=== PATIENT | male | born 1955 | race Hispanic/Latino ===

== ENCOUNTER 2021-07-28 13:06 | Inpatient (IN) | payer MEDICARE ==
--- NOTE | 2021-07-28 14:16 | Emergency Department Report ---
- General Chief complaint: Recheck/Abnormal Lab/Rx Stated complaint: ABNORMAL LABS Time Seen by Provider: 07/28/21 13:30 Source: patient Mode of arrival: Stretcher Limitations: No Limitations - History of Present Illness Initial comments: Patient presents by ambulance secondary to generalized weakness and shortness of breath. He states that he is having ongoing generalized weakness and dyspnea. This is progressively worsened over the last week. His decided to take him to the hospital today to be seen because he was getting worse. He was physically unable to walk out to the car due to weakness. EMS was called. Patient had outpatient labs drawn yesterday. He was told today that his hemoglobin was 8 and that he needed to be seen. He has a recent history of bleeding ulcers. He was admitted twice at [place] for bleeding ulcers. He required transfusion both times. Severity scale (0 -10): 0 - Related Data Allergies Allergy/AdvReac Type Severity Reaction Status Date / Time warfarin [From Coumadin] Allergy Nausea Verified 07/28/21 13:21 ED Review of Systems ROS: Stated complaint: ABNORMAL LABS Other details as noted in HPI Comment: All other systems reviewed and negative Constitutional: denies: fever Eyes: denies: eye pain ENT: denies: throat pain Respiratory: denies: cough Cardiovascular: denies: chest pain Endocrine: denies: unexplained weight loss Gastrointestinal: denies: abdominal pain Genitourinary: denies: dysuria Skin: denies: rash Neurological: denies: headache Hematological/Lymphatic: denies: easy bruising ED Past Medical Hx - Past Medical History Previous Medical History?: Yes Hx Congestive Heart Failure: Yes Hx Diabetes: Yes ED Physical Exam - General Limitations: No Limitations ED Course Vital Signs 07/28/21 07/28/21 07/28/21 13:16 13:49 13:55 Temperature 98.2 F Pulse Rate 90 89 Respiratory 16 Rate Blood Pressure Blood Pressure 116/90 [Left] O2 Sat by Pulse 99 97 Oximetry 07/28/21 07/28/21 07/28/21 14:00 14:15 14:31 Temperature Pulse Rate 99 H 92 H 83 Respiratory 16 15 17 Rate Blood Pressure 131/56 131/56 140/53 Blood Pressure [Left] O2 Sat by Pulse 100 100 100 Oximetry 07/28/21 14:45 Temperature Pulse Rate 84 Respiratory 15 Rate Blood Pressure 140/53 Blood Pressure [Left] O2 Sat by Pulse 100 Oximetry - Reevaluation(s) Reevaluation #1: 07/28/21 16:58 Labs have been noted. Case has been discussed with the patient and resource uti lization. Will admit for transfusion. ED Medical Decision Making - Lab Data Result diagrams: 07/28/21 14:10 07/28/21 14:10 - Medical Decision Making Patient presents with symptomatic anemia in the form of shortness of breath and generalized weakness. He has been transfused before. We will proceed with ongoing transfusion at this time. Patient does not have evidence of STEMI. He clinically does not have chest pain. I do not believe this represents NSTEMI. Whether or not he will benefit from a single unit is unknown. The degree of his congestive heart failure is also unknown. I would hate to create pulmonary edema by giving him packed red cells. He will be admitted for observation status. Critical Care Time: No Critical care attestation.: If time is entered above; I have spent that time in minutes in the direct care of this critically ill patient, excluding procedure time. ED Disposition Clinical Impression: Symptomatic anemia Disposition: ADMITTED INPATIENT Is pt being admited?: Yes Condition: Stable
[2021-07-28 14:31] LABS: Hematocrit 23.8 % (35.5-45.6); Hemoglobin 7.5 gm/dl (11.8-15.2); Mean Corpuscular HGB Conc 32 % (32-34); Mean Corpuscular Volume 77 fl (84-94); Platelet Count 166 K/mm3 (140-440); Red Blood Count 3.07 M/mm3 (3.65-5.03); Red Cell Distribution Width 17.6 % (13.2-15.2)
[2021-07-28 14:52] LABS: BUN/Creatinine Ratio 20; Blood Urea Nitrogen 24 mg/dL (9-20); Calcium 8.7 mg/dL (8.4-10.2); Hemolysis Index 1
--- NOTE | 2021-07-28 17:00 | History and Physical Report ---
History of Present Illness Chief complaint: I feel weak History of present illness: 65 YO Male with Obesity Hypoventilation Syndrome, DM, CHF, Anemia Chronic Disease presents to ED for evaluation. Patient reports "I feel weak". Patient states that he has experienced progressive and generalized weakness over the past 1 week with progressively worsening symptoms over the same timeframe. Patient knowledges decreased exercise tolerance, dyspnea on exertion, dyspnea at rest, orthopnea, as well as paroxysmal nocturnal dyspnea. EMS was notified and upon arrival the patient was found to be in distress and subsequently transported to [facility] for further care and evaluation of the aforementioned symptoms. The patient was seen and evaluated in the emergency department. All lab and imaging studies reviewed. Patient found to have clinical symptoms consistent with diastolic CHF, as well as symptomatic anemia. Patient placed in observation status and admitted to telemetry. Patient initiated on CHF protocol. Patient transfused with packed red blood cells. Patient denies fever, chills, chest pain, palpitation, productive cough, skin rash, recent ill contacts, known exposure to COVID-19, unilateral leg swelling, calf pain, individual/family history of DVT/PE/bleeding/blood clotting disorders. Past History Past Medical History: heart failure, hypertension, other (See HPI) Past Surgical History: Other (Endoscopy) Social history: , lives with family. denies: smoking, alcohol abuse, prescription drug abuse Family history: diabetes, hypertension Medications and Allergies Allergies Allergy/AdvReac Type Severity Reaction Status Date / Time warfarin [From Coumadin] Allergy Nausea Verified 07/28/21 13:21 Review of Systems Constitutional: weakness Exam - Constitutional Vitals: Temp Pulse Resp BP Pulse Ox 98.2 F 84 15 140/53 100 07/28/21 13:16 07/28/21 14:45 07/28/21 14:45 07/28/21 14:45 07/28/21 14:45 General appearance: Present: mild distress - EENT Eyes: Present: PERRL ENT: hearing intact, clear oral mucosa, other (Conjunctival pallor) - Neck Neck: Present: supple, normal ROM - Respiratory Respiratory effort: normal Respiratory: bilateral: CTA - Cardiovascular Heart Sounds: Present: S1 & S2. Absent: rub, click - Extremities Extremities: pulses symmetrical Extremity abnormal: edema Peripheral Pulses: within normal limits - Abdominal General gastrointestinal: Present: soft, non-tender, non-distended, normal bowel sounds Male genitourinary: Present: normal - Integumentary Integumentary: Present: clear, warm, dry - Musculoskeletal Musculoskeletal: generalized weakness - Psychiatric Psychiatric: appropriate mood/affect, intact judgment & insight - Neurologic Neurologic: CNII-XII intact, moves all extremities HEART Score - HEART Score Troponin: Troponin T < 0.010 ng/mL (0.00-0.029) 07/28/21 14:10 Results - Labs CBC & Chem 7: 07/28/21 14:10 07/28/21 14:10 Labs: Abnormal lab results 07/28/21 07/28/21 Range/Units 14:10 14:10 RBC 3.07 L (3.65-5.03) M/mm3 Hgb 7.5 L (11.8-15.2) gm/dl Hct 23.8 L (35.5-45.6) % MCV 77 L (84-94) fl MCH 24 L (28-32) pg RDW 17.6 H (13.2-15.2) % Chloride 107.9 H (98-107) mmol/L BUN 24 H (9-20) mg/dL Glucose 112 H (75-100) mg/dL Assessment and Plan - Patient Problems (1) Congestive heart failure Status: Acute Qualifiers: Heart failure type: systolic Heart failure chronicity: acute on chronic Qualified Code(s): I50.23 - Acute on chronic systolic (congestive) heart failure Plan to address problem: Strict I's/O, monitor urine output every shift, daily weight, afterload reduc tion, blood pressure control, supplemental oxygen, pulse oximetry, echocardiogram ordered and is pending at time of admission, thyroid panel, magnesium level, BNP (2) Symptomatic anemia Status: Acute Plan to address problem: Packed red blood cell transfusion, CBC, repeat CBC in a.m. (3) Obesity hypoventilation syndrome Status: Acute Plan to address problem: Balanced diet, increase physical activity discharge, outpatient pulmonary follow-up for sleep study (4) DVT prophylaxis Status: Acute Plan to address problem: SCD to bilateral lower extremities while in bed, patient is ambulatory
[2021-07-28] MEDS ORDERED: SODIUM CHLORIDE 0.9% 500 ML 500 ML IV ONE (17:13)
[2021-07-28] MEDS ORDERED: ACETAMINOPHEN 325 MG TAB PO PRN (17:42)
[2021-07-28] MEDS ORDERED: oxyCODONE /ACETAMINOPHEN 5-325MG TAB PO PRN (17:42)
[2021-07-28] MEDS ORDERED: HYDROmorphone 1 MG/1 ML INJ IV PRN (17:42)
[2021-07-28] MEDS ORDERED: ALBUTEROL 2.5 MG/3 ML NEBU IH PRN (17:42)
[2021-07-28] MEDS ORDERED: SODIUM CHLORIDE 0.9% 500 ML 500 ML IV SCH (17:44)
[2021-07-28] MEDS ORDERED: FUROSEMIDE 20 MG/2 ML INJ IV ONE (18:00)
[2021-07-28 18:34] LABS: Free T4 (Free Thyroxine) 0.98 ng/dL (0.76-1.46)
[2021-07-29] MEDS: ONDANSETRON 4 MG/2 ML INJ IV PRN ×2 (04:15→21:53)
[2021-07-29 08:30] LABS: BUN/Creatinine Ratio 18; Blood Urea Nitrogen 20 mg/dL (9-20); Calcium 8.6 mg/dL (8.4-10.2); Hemolysis Index 4
--- NOTE | 2021-07-29 10:50 | Progress Note ---
Assessment and Plan Assessment and plan: Acute on chronic diastolic heart failure. Acute blood loss anemia Symptomatic anemia Obesity hypoventilation syndrome Acute hypoxic respiratory failure. Etiology secondary to above Paroxysmal atrial fibrillation. Rate controlled 07/29/2021. I discussed the case with cardiology who reports patient had recent echocardiogram at [facility] with normal LV function. Patient was on digoxin at home for rate control and Xarelto for anticoagulation. We will continue to hold Xarelto until further evaluation by GI. Patient may need pill endoscopy. Patient reportedly has had history of symptomatic anemia x2 requiring PRBCs on 2 separate hospitalizations in the recent past. Patient with recent upper endoscopy May 13, 2021 at [facility]. Consult GI for further evaluation. Patient is s/p 2 units PRBCs on admission. History Interval history: No new issues overnight. No active bleeding, hematochezia or melena. Hospitalist Physical - Constitutional Vitals: Temp Pulse Resp BP Pulse Ox 98.4 F 96 H 18 128/64 98 07/29/21 06:05 07/29/21 06:05 07/29/21 06:05 07/29/21 06:05 07/29/21 06:05 General appearance: Present: mild distress - EENT Eyes: Present: PERRL, EOM intact ENT: hearing intact, clear oral mucosa, dentition normal - Neck Neck: Present: supple, normal ROM - Respiratory Respiratory effort: normal Respiratory: bilateral: CTA - Cardiovascular Rhythm: regular Heart Sounds: Present: S1 & S2. Absent: gallop, rub - Extremities Extremities: no ischemia, No edema, Full ROM - Abdominal General gastrointestinal: soft, non-tender, non-distended, normal bowel sounds - Integumentary Integumentary: Present: clear, warm, dry - Neurologic Neurologic: CNII-XII intact, moves all extremities HEART Score - HEART Score Troponin: Troponin T < 0.010 ng/mL (0.00-0.029) 07/28/21 14:10 Results - Labs CBC & Chem 7: 07/28/21 14:10 07/29/21 07:21 Labs: Laboratory Last Values WBC 5.0 K/mm3 (4.5-11.0) 07/28/21 14:10 RBC 3.07 M/mm3 (3.65-5.03) L 07/28/21 14:10 Hgb 7.5 gm/dl (11.8-15.2) L 07/28/21 14:10 Hct 23.8 % (35.5-45.6) L 07/28/21 14:10 MCV 77 fl (84-94) L 07/28/21 14:10 MCH 24 pg (28-32) L 07/28/21 14:10 MCHC 32 % (32-34) 07/28/21 14:10 RDW 17.6 % (13.2-15.2) H 07/28/21 14:10 Plt Count 166 K/mm3 (140-440) 07/28/21 14:10 Sodium 143 mmol/L (137-145) 07/29/21 07:21 Potassium 4.7 mmol/L (3.6-5.0) 07/29/21 07:21 Chloride 105.9 mmol/L (98-107) 07/29/21 07:21 Carbon Dioxide 26 mmol/L (22-30) 07/29/21 07:21 Anion Gap 16 mmol/L 07/29/21 07:21 BUN 20 mg/dL (9-20) 07/29/21 07:21 Creatinine 1.1 mg/dL (0.8-1.3) 07/29/21 07:21 Estimated GFR > 60 ml/min 07/29/21 07:21 BUN/Creatinine Ratio 18 % 07/29/21 07:21 Glucose 107 mg/dL (75-100) H 07/29/21 07:21 POC Glucose 108 mg/dL (70-105) H 07/28/21 23:55 Calcium 8.6 mg/dL (8.4-10.2) 07/29/21 07:21 Magnesium 2.00 mg/dL (1.7-2.3) 07/28/21 17:56 Troponin T < 0.010 ng/mL (0.00-0.029) 07/28/21 14:10 NT-Pro-B Natriuret Pep 1286 pg/mL (0-900) H 07/28/21 17:56 TSH 3.870 mlU/mL (0.270-4.200) 07/28/21 17:56 Free T4 0.98 ng/dL (0.76-1.46) 07/28/21 17:56 Blood Type B POSITIVE 07/28/21 14:15 Antibody Screen Positive 07/28/21 14:15 Antibody Identification Anti-E 07/28/21 14:15 Crossmatch See Detail 07/28/21 14:15 Active Medications - Current Medications Current Medications: Generic Name Dose Route Start Last Admin Trade Name Freq PRN Reason Stop Dose Admin Acetaminophen 650 mg 07/28/21 17:42 07/29/21 03:58 Acetaminophen 325 Mg Tab PO 650 mg Q4H PRN Administration Pain MILD(1-3)/Fever >100.5/SANDERSON Albuterol 2.5 mg 07/28/21 17:42 Albuterol 2.5 Mg/3 Ml Nebu IH Q4HRT PRN Shortness Of Breath Hydromorphone HCl 0.5 mg 07/28/21 17:42 Hydromorphone 1 Mg/1 Ml Inj IV Q23H PRN Pain , Severe (7-10) Sodium Chloride 500 mls @ 0 mls/hr 07/28/21 17:44 Nacl 0.9% 500 Ml IV ONCE MELBA As Directed Ondansetron HCl 4 mg 07/28/21 17:42 07/29/21 04:15 Ondansetron 4 Mg/2 Ml Inj IV 4 mg Q8H PRN Administration Nausea And Vomiting Oxycodone/Acetaminophen 1 tab 07/28/21 17:42 Oxycodone /Acetaminophen 5-325mg Tab PO Q16H PRN Pain, Moderate (4-6) Sodium Chloride 10 ml 07/28/21 22:00 Sodium Chloride 0.9% 10 Ml Flush Syringe IV BID MELBA Sodium Chloride 10 ml 07/28/21 17:42 Sodium Chloride 0.9% 10 Ml Flush Syringe IV PRN PRN LINE FLUSH
[2021-07-29] MEDS ORDERED: FLU VACC QUAD 2021-22(6MOS UP)/PF 60 MCG/0.5 ML SYRINGE IM ONE (12:00)
[2021-07-29 12:46] LABS: Basophils # (Auto) 0.1 K/mm3 (0.0-0.1); Basophils % (Auto) 1.8 % (0.0-1.8); Eosinophils # (Auto) 0.1 K/mm3 (0.0-0.4); Eosinophils % (Auto) 1.7 % (0.0-4.3); Hematocrit 26.4 % (35.5-45.6); Hemoglobin 8.3 gm/dl (11.8-15.2); Lymphocytes # (Auto) 0.4 K/mm3 (1.2-5.4); Lymphocytes % (Auto) 7.2 % (13.4-35.0); Mean Corpuscular HGB Conc 32 % (32-34); Mean Corpuscular Volume 80 fl (84-94); Monocytes # (Auto) 0.5 K/mm3 (0.0-0.8); Monocytes % (Auto) 9.1 % (0.0-7.3); Platelet Count 153 K/mm3 (140-440); Red Blood Count 3.32 M/mm3 (3.65-5.03); Red Cell Distribution Width 18.4 % (13.2-15.2)
--- NOTE | 2021-07-29 15:30 | Event Note ---
Date: 07/29/21 Full GI consult dictated - pt previous pud at [facility] now dark stools 1 1/2 wks ago with general weakness - Hgb on admission 7.5 (pt reports approx same at [facility]) - denies other GI complaints - pt feels better after transfusion and would like to go - no plans to scope at this time - ok to dc even today from GI standpoint on PPI qd and f/u outpt - will follow
--- NOTE | 2021-07-29 15:55 | Consultation ---
History of Present Illness Consult date: 07/29/21 Requesting physician: MAGAN PEREZ Consult reason: congestive heart failure History of present illness: Patient is a 65-year-old male with a past medical history A. fib, of chronic anemia, CKD HFpEF, GI bleeds, diabetes presented to the ED with a complaint of feeling weak x1. Patient reports that over the last week he has progressively felt weaker he notices decreased exercise tolerance dyspnea at exertion dyspnea at rest orthopnea and paroxysmal nocturnal dyspnea. Patient had labs drawn recently and received call from primary care clinic yesterday telling him that hemoglobin was low and they needed to go to the ED. Of note at the time of interview patient recently had blood transfusions patient reports that after receiving blood he feels much better. Patient is previously known to our pract shay. He follows with follows with Dr. Gautam Mendiola of [place]. Cardiology is consulted for heart failure Past History Past Medical History: heart failure, hypertension, other (See HPI) Past Surgical History: Other (Endoscopy) Social history: , lives with family. denies: smoking, alcohol abuse, prescription drug abuse Family history: diabetes, hypertension Medications and Allergies Allergies Allergy/AdvReac Type Severity Reaction Status Date / Time warfarin [From Coumadin] Allergy Nausea Verified 07/28/21 13:21 Home Medications Medication Instructions Recorded Confirmed Last Taken Type ALPRAZolam 0.25 mg PO PRN 07/28/21 07/28/21 Unknown History Metoprolol 100 mg PO DAILY 07/28/21 07/28/21 Unknown History NovoLIN 70/30 25 units SC DAILY 07/28/21 07/28/21 07/28/21 08:00 History Sertraline 50 mg PO DAILY 07/28/21 07/28/21 Unknown History Xarelto 20 mg PO DAILY 07/28/21 07/28/21 Unknown History dilTIAZem 180 mg PO BID 07/28/21 07/28/21 Unknown History metFORMIN 1,000 mg PO BID 07/28/21 07/28/21 Unknown History Active Meds: Active Medications Acetaminophen (Acetaminophen 325 Mg Tab) 650 mg PO Q4H PRN PRN Reason: Pain MILD(1-3)/Fever >100.5/SANDERSON Last Admin: 07/29/21 03:58 Dose: 650 mg Documented by: Albuterol (Albuterol 2.5 Mg/3 Ml Nebu) 2.5 mg IH Q4HRT PRN PRN Reason: Shortness Of Breath Bumetanide (Bumetanide 1 Mg Tab) 2 mg PO DAILY [facility] Digoxin (Digoxin 0.125 Mg Tab) 0.125 mg PO DAILY@1700 [facility] Diltiazem HCl (Diltiazem 60 Mg Tab) 180 mg PO BID [facility] Hydromorphone HCl (Hydromorphone 1 Mg/1 Ml Inj) 0.5 mg IV Q23H PRN PRN Reason: Pain , Severe (7-10) Sodium Chloride (Nacl 0.9% 500 Ml) 500 mls @ 0 mls/hr IV ONCE MELBA Metoprolol Tartrate (Metoprolol Tartrate 100 Mg Tab) 100 mg PO BID [facility] Ondansetron HCl (Ondansetron 4 Mg/2 Ml Inj) 4 mg IV Q8H PRN PRN Reason: Nausea And Vomiting Last Admin: 07/29/21 04:15 Dose: 4 mg Documented by: Oxycodone/Acetaminophen (Oxycodone /Acetaminophen 5-325mg Tab) 1 tab PO Q16H PRN PRN Reason: Pain, Moderate (4-6) Sodium Chloride (Sodium Chloride 0.9% 10 Ml Flush Syringe) 10 ml IV BID MELBA Sodium Chloride (Sodium Chloride 0.9% 10 Ml Flush Syringe) 10 ml IV PRN PRN PRN Reason: LINE FLUSH Review of Systems Constitutional: no weight loss, no weight gain, no fever Cardiovascular: orthopnea, shortness of breath, dyspnea on exertion, paroxysmal nocturnal dyspnea, no chest pain Respiratory: shortness of breath, dyspnea on exertion, no cough, no cough with sputum, no excessive sputum Gastrointestinal: no abdominal pain, no nausea, no vomiting Musculoskeletal: no neck pain, no shooting arm pain, no arm numbness/tingling Integumentary: no rash, no pruritis, no redness Neurological: no head injury, no transient paralysis, no paralysis Psychiatric: no anxiety, no memory loss Endocrine: no cold intolerance, no heat intolerance Physical Examination Vital Signs Temp Pulse Resp BP Pulse Ox 98.2 F 90 16 116/90 99 07/28/21 13:16 07/28/21 13:16 07/28/21 13:16 07/28/21 13:16 07/28/21 13:16 General appearance: no acute distress HEENT: Positive: PERRL Cardiac: Positive: irregularly irregular Lungs: Positive: Normal Breath Sounds Neuro: Positive: Grossly Intact Abdomen: Positive: Soft, Active Bowel Sounds Skin: Negative: Rash, Suspicious Lesions, Ulceration Extremities: Present: upper extr. pulses, lower extr. pulses, edema Results 07/29/21 11:48 07/29/21 07:21 CBC 07/29/21 Range/Units 11:48 WBC 5.6 (4.5-11.0) K/mm3 RBC 3.32 L (3.65-5.03) M/mm3 Hgb 8.3 L (11.8-15.2) gm/dl Hct 26.4 L (35.5-45.6) % Plt Count 153 (140-440) K/mm3 Lymph # (Auto) 0.4 L (1.2-5.4) K/mm3 [place] # (Auto) 0.5 (0.0-0.8) K/mm3 Eos # (Auto) 0.1 (0.0-0.4) K/mm3 Baso # (Auto) 0.1 (0.0-0.1) K/mm3 Comprehensive Metabolic Panel 07/29/21 Range/Units 07:21 Sodium 143 (137-145) mmol/L Potassium 4.7 (3.6-5.0) mmol/L Chloride 105.9 (98-107) mmol/L Carbon Dioxide 26 (22-30) mmol/L BUN 20 (9-20) mg/dL Creatinine 1.1 (0.8-1.3) mg/dL Glucose 107 H (75-100) mg/dL Calcium 8.6 (8.4-10.2) mg/dL - Imaging and Cardiology Echo: report reviewed EKG: report reviewed EKG interpretations - Telemetry EKG Rhythm: Atrial Fibrillation - EKG Supraventricular dysrhythmia: atrial fibrillation Assessment and Plan EKG shows A. fib rate controlled no acute ischemic changes Outpatient regimen Xarelto, Bumex 2 mg p.o. twice daily diltiazem 180 mg twice daily, metoprolol 100 mg twice daily digoxin 250 mcg Echo 07/28/2021-EF 50 to 55%, right ventricle systolic function is normal, right ventricle mildly dilated, left atrium mildly dilated, and no aortic regurgitation, mild tricuspid regurgitation, mild mitral regurgitation We will hold anticoagulation due to patient's anemia and history of GI bleeds We will resume patient's outpatient medication regimen. Bumex 2mg p.o. 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 Whitten who agrees with plan of care. Will continue to follow - Patient Problems (1) CKD (chronic kidney disease) Current Visit: Yes Status: Acute (2) Diabetes Current Visit: Yes Status: Acute (3) Afib Current Visit: Yes Status: Acute (4) Congestive heart failure Current Visit: No Status: Acute Qualifiers: Heart failure type: systolic Heart failure chronicity: acute on chronic Qualified Code(s): I50.23 - Acute on chronic systolic (congestive) heart failure (5) Obesity hypoventilation syndrome Current Visit: No Status: Acute (6) Anemia Current Visit: Yes Status: Acute
[2021-07-29] MEDS ORDERED: DIGOXIN 0.125 MG TAB PO SCH (17:00)
[2021-07-29] MEDS ORDERED: ALPRAZolam 0.25 MG TAB PO ONE (17:19)
[2021-07-29] MEDS: METOPROLOL TARTRATE 100 MG TAB PO SCH ×2 (17:36→22:04)
[2021-07-29] MEDS: dilTIAZem 60 MG TAB PO SCH (21:43)
--- NOTE | 2021-07-30 04:08 | Consultation ---
DATE OF CONSULTATION: 07/29/2021 REFERRING PHYSICIAN: Dariel Hobson M.D. INDICATION: Anemia. HISTORY OF PRESENT ILLNESS: The patient is a 65-year-old obese white male with history of diabetes, CHF, anemia and chronic onset of obesity hypoventilation syndrome. The patient has been seen by GI for anemia. The patient reports back in March of this year, he presented to [facility] with general weakness and subsequently was diagnosed with significant anemia requiring transfusion and EGD done a few weeks later showed an ulcer. The patient reports he was supposed to have a repeat EGD in August of this year. The patient reports about a week and a half ago, he noted a couple days of some dark stools and since that time, has been generally weak. He reports when he left [facility], he was at a hemoglobin of 7. The patient subsequently denies any further dark stools over the last week and subsequently came to the Emergency Room here where he was noted to be anemic, admitted and GI consulted. The patient denies any hematemesis. He denies any bright red or dark stools over the last week. No other specific complaints. PAST MEDICAL HISTORY: 1. Hypertension. 2. Heart failure. MEDICATIONS: Reviewed and updated in chart. ALLERGIES: Coumadin. SOCIAL HISTORY: Denies alcohol, tobacco or drug abuse. FAMILY HISTORY: Negative for colon cancer, IBD or liver disease. REVIEW OF SYSTEMS: GENERAL: Reports some weakness. HEENT: No visual complaints or tinnitus. PULMONARY: No shortness of breath or chest pain. GASTROINTESTINAL: Reports dark stools a week and a half ago. All points of 13-point review of system otherwise negative. PHYSICAL EXAMINATION: VITAL SIGNS: Temperature 98.4, pulse 96, respiration 18, blood pressure 128/60. GENERAL: Fairly nourished, obese white male, in no acute distress. HEENT: Pupils round and reactive. Pulmonary rhonchi. CARDIOVASCULAR: Regular rate and rhythm. Normal S1, S2. ABDOMEN: Positive bowel sound, soft. SKIN: No obvious rashes. LABORATORY DATA: White count of 5.6, hemoglobin and hematocrit of 7.5 and 23.8, platelet count of 166. Chem-7 within normal limits. Coags within normal limits. ASSESSMENT: A 65-year-old male who reports that in March of this year. He was weak and dizzy and anemic and subsequently required blood transfusions at [facility] with the EGD done a few weeks later showing peptic ulcer and was told to have a repeat EGD this upcoming August, now presented with noted dark stools about a week and a half ago, which returned to normal and general weakness. The patient presented with a hemoglobin of 7.5, which he reports that when he left [facility], he was running in the 7s. He denies any further signs of bleeding over the last week. The patient himself is anxious to go home. Management as noted below. PLAN: 1. Follow hematocrit and transfuse as needed. 2. PPI IV b.i.d. 3. We will attempt to get records from [facility]. 4. Cardiology evaluation ongoing and we will follow. 5. From a GI standpoint, the patient is stable after transfusion. He can go with plans to repeat EGD with Dr. Merino, his previous knifer up as an outpatient. 6. If patient stays, we will follow. TID: [id number] RECEIPT: [id number] CAB/STD
[2021-07-30 08:23] VITALS: BP 124/69
--- NOTE | 2021-07-30 08:25 | Discharge Summary ---
Providers - Providers Date of Admission: 07/29/21 11:00 Date of discharge: 07/30/21 Attending physician: MAGAN PEREZ 07/29/21 07:56 Consult to Cardiology [CONS] Routine Consulting Provider: JEANETTE LEACH Reason For Exam: acute HF 07/29/21 10:54 Consult to Physician [CONS] Routine Comment: Consulting Provider: APARNA BELLO Physician Instructions: Reason For Exam: ABLA, symptomatic anemia Primary care physician: [employer] Hospitalization Reason for admission: Symptomatic anemia Condition: Stable Hospital course: Patient is a 65-year-old male with a past medical history A. fib, of chronic anemia, CKD HFpEF, GI bleeds, diabetes presented to the ED with a complaint of feeling weak x1. Patient reports that over the last week he has progressively felt weaker he notices decreased exercise tolerance dyspnea at exertion dyspnea at rest orthopnea and paroxysmal nocturnal dyspnea. Patient had labs drawn recently and received call from primary care clinic the day prior to admission telling him that hemoglobin was low and they needed to go to the ED. Of note, at the time of interview, patient recently had blood transfusion and reported that after receiving blood he felt much better.He follows with follows with Dr. Gautam Mendiola of [place]. The patient was admitted with diagnosis of acute on chronic diastolic heart failure, acute blood loss anemia, symptomatic anemia, obesity hypoventilation syndrome, paroxysmal atrial fibrillation and acute hypoxic respiratory failure cardiology was consulted for heart failure and A. fib. The patient had echocardiogram that revealed EF 50 to 55%, right ventricle systolic function is normal, right ventricle mildly dilated, left atrium mildly dilated, and no aortic regurgitation, mild tricuspid regurgitation, mild mitral regurgitation. Cardiology recommended holding anticoagulation due to patient's anemia history of GI bleeds. Cardiology also recommended continuing Bumex 2 mg p.o. daily, diltiazem 180 mg twice daily and metoprolol 100 mg twice daily and digoxin daily. GI saw the patient in consultation and had no plans to perform scope at this time. GI reported patient could discharge home with PPI daily and follow-up as an outpatient. Therefore, patient will be discharged home and is to follow-up with PCP, primary billing auditor and GI with Dr. Bello. Dedicated discharge time 35 minutes Disposition: 01 HOME / SELF CARE / HOMELESS Final Discharge Diagnosis (Prints w/discharge instructions): Acute blood loss anemia, symptomatic anemia, acute on chronic diastolic heart failure, obesity hypoventilation syndrome, acute hypoxic respiratory failure, paroxysmal atrial fibrillation Core Measure Documentation - Palliative Care Palliative Care/ Comfort Measures: Not Applicable - Core Measures Any of the following diagnoses?: heart failure - Heart Failure Discharge Requirements GIOVANI/ARB for LVSD if EF <40%: Not Applicable Beta shaun at discharge: Yes Exam - Constitutional Vitals: Temp Pulse Resp BP Pulse Ox 97.8 F 65 16 138/77 97 07/30/21 03:33 07/30/21 04:00 07/30/21 03:33 07/30/21 03:33 07/30/21 03:33 General appearance: Present: no acute distress, well-nourished - EENT Eyes: Present: PERRL ENT: hearing intact, clear oral mucosa - Neck Neck: Present: supple, normal ROM - Respiratory Respiratory effort: normal Respiratory: bilateral: CTA - Cardiovascular Heart Sounds: Present: S1 & S2. Absent: rub, click - Extremities Extremities: pulses symmetrical, No edema Peripheral Pulses: within normal limits - Abdominal General gastrointestinal: Present: soft, non-tender, non-distended, normal bowel sounds Male genitourinary: Present: normal - Integumentary Integumentary: Present: clear, warm, dry - Musculoskeletal Musculoskeletal: gait normal, strength equal bilaterally - Psychiatric Psychiatric: appropriate mood/affect, intact judgment & insight - Neurologic Neurologic: CNII-XII intact, moves all extremities Plan Activity: advance as tolerated Weight Bearing Status: Weight Bear as Tolerated Diet: regular Follow up with: [facility] BAUTISTA MD [Primary Care Provider] - 7 Days APARNA BELLO MD [Staff Physician] - 7 Days Prescriptions: Bumetanide [Bumex 1 mg tab] 2 mg PO DAILY #30 tablet dilTIAZem [Cardizem] 180 mg PO BID #60 tablet Digoxin [Lanoxin] 0.125 mg PO DAILY@1700 #30 tablet Pantoprazole [Protonix] 40 mg PO BID #60 tablet
[2021-07-30] MEDS: dilTIAZem 60 MG TAB PO SCH (09:56)
[2021-07-30] MEDS: METOPROLOL TARTRATE 100 MG TAB PO SCH (09:57)
[2021-07-30] MEDS ORDERED: BUMETANIDE 1 MG TAB PO SCH (10:00)
--- NOTE | 2021-08-04 09:47 | Electrocardiograph Report ---
[facility] Test Date: 2021-07-29 Test Time: 10:52:07 Pat Name: THANG COLBERT Department: Room: A482 1 Gender: M Home Assessment Nurse: TYLER : 1955 Requested By: APARNA SPENCER Order Number: [id number] Reading MD: Dejah Enriquez Measurements Intervals Maynard Rate: 94 P: FL: QRS: -16 QRSD: 112 T: 41 QT: 382 QTc: 479 Interpretive Statements Atrial fibrillation Low voltage, extremity leads Consider old anterior infarct No previous ECG available for comparison Electronically Signed On 08-04-2021 9:46:49 EDT by Dejah Enriquez
== END 2021-07-30 13:42 | disposition home or self-care (01) | DRG 291 ==
LOC: ED 13:06 → 4A 17:42 → OBSVTOIN 07-29 11:00
PROVIDERS: ADMIT Internal Medicine; ATTEND Hospitalist
PROC: 30233N1 Transfusion of Nonautologous Red Blood Cells into Peripheral Vein, Percutaneous Approach (ICD-10-PCS; principal; 2021-07-29)
DX: I13.0 Hypertensive heart and chronic kidney disease with heart failure and stage 1 through stage 4 chronic kidney disease, or unspecified chronic kidney disease (principal); I50.33 Acute on chronic diastolic (congestive) heart failure; J96.01 Acute respiratory failure with hypoxia; E66.2 Morbid (severe) obesity with alveolar hypoventilation; Z68.41 Body mass index [BMI] 40.0-44.9, adult; D62 Acute posthemorrhagic anemia; I48.0 Paroxysmal atrial fibrillation; Z83.3 Family history of diabetes mellitus; Z82.49 Family history of ischemic heart disease and other diseases of the circulatory system; N18.9 Chronic kidney disease, unspecified; Z20.822 Contact with and (suspected) exposure to COVID-19
CPT/HCPCS: 36415; 80048; 80162; 82962; 83735; 83880; 84439; 84443; 84484; 85025; 85027; 86850; 86870; 86900; 86901; 86920; 86922; 93005; 93306; 94760; G0378; J1940; J2405; J7040; P9016